=== PATIENT | male | born 1975 | race African-American/Black ===

== ENCOUNTER 2019-01-22 18:22 | Emergency (ER) | payer OTHER ==
[~2019-01-22] VITALS: Ht 170.2 cm; Wt 113.4 kg
[2019-01-22 19:00] LABS: ABSOLUTE NEUTROPHILS 4.1 thou/uL (1.4-8.2); BASOPHILS 1.5 % (0.0-2.0); EOSINOPHILS 6.1 % (0.0-3.0); HEMATOCRIT 43.4 % (42.0-52.0); HEMOGLOBIN 14.1 gm/dL (14.0-18.0); LYMPHOCYTES 30.3 % (24.0-44.0); MCH 26.9 pg (26.0-34.0); MCHC 32.4 g/dL (28.0-37.0); MCV 83.1 fL (80.0-100.0); MONOCYTES 10.2 % (1.0-8.0); PLATELET COUNT 386 thou/uL (150-400); POLYS 51.9 % (36.0-66.0); RBC 5.22 mil/uL (4.50-6.00); RDW 14.3 % (10.5-14.5); WBC 7.9 thou/uL (4.0-11.0)
[2019-01-22 19:04] LABS: CALCIUM 9.8 mg/dL (8.5-10.1); CREATININE 1.3 mg/dL (0.7-1.3); POTASSIUM 3.9 mmol/L (3.5-5.1)
[2019-01-22 19:10] LABS: ALBUMIN 4.3 g/dL (3.4-5.0); TOTAL BILIRUBIN 0.5 mg/dL (<0.1-1.0); TOTAL PROTEIN 8.5 g/dL (6.4-8.2)
[2019-01-22] MEDS ORDERED: MEDROLDOSEPACK PO (19:29)
[2019-01-22] MEDS ORDERED: DOXYCYCLINE 10100 MG PO (19:29)
[2019-01-22] MEDS ORDERED: TESSALON PERLE100 MG PO (19:29)
[2019-01-22] MEDS ORDERED: VENTOLIN HFA 1818 GM INH (19:29)
[2019-01-22 20:15] VITALS: BP 139/94
== END 2019-01-22 20:15 | disposition home or self-care (01) ==
LOC: ER 18:22
PROVIDERS: Physician Assistant
DX: J98.01 Acute bronchospasm (principal)